=== PATIENT | male | born 1990 | race African-American/Black ===

== ENCOUNTER 2018-03-10 08:42 | Emergency (ER) | payer SELFPAY ==
[~2018-03-10] VITALS: Ht 170.2 cm; Wt 73.0 kg
[2018-03-10] MEDS ORDERED: ACETAMINOPHEN 500MG TABLET PO ONE (09:45)
[2018-03-10] MEDS ORDERED: CLINDAMYCIN HCL 150MG CAPSULE PO ONE (09:45)
[2018-03-10] MEDS ORDERED: IBUPROFEN 600MG TABLET PO ONE (09:45)
[2018-03-10] MEDS ORDERED: LIDOCAINE HCL 1% 20ML VIAL (Pyxis) INJ MC ONE (09:45)
[2018-03-10 10:58] VITALS: BP 125/80
== END 2018-03-10 14:18 | disposition home or self-care (01) ==
LOC: ER 08:42
DX: K04.7 Periapical abscess without sinus (principal)
CPT/HCPCS: 10060; 99284; J3490